=== PATIENT | female | born 1955 | race Caucasian/White ===

== ENCOUNTER 2017-10-19 12:24 | Inpatient (IN) | payer OTHER ==
[~2017-10-19] VITALS: Ht 160 cm; Wt 65.3 kg
[2017-10-19 12:45] VITALS: BP 206/111
--- NOTE | 2017-10-19 12:54 | NUR ---
URINE CUP PROVIDED TO PT FOR URINE SAMPLE; PT AA&OX4 WITH EVEN AND STEADY GAIT; PT TO LOBBY AWAITING OPEN BED; ER MD MADE AWARE OF PT'S BP.
--- NOTE | 2017-10-19 13:08 | NUR ---
61F BIB FAMILY C/O INTERMITTENT RT SIDED, MID-ABDOMINAL PAIN X 2 MONTHS, WITH VOMITING X TODAY. HX: APPENDIX RUPTURED (10 YEARS AGO), DM, HTN, HYERTHYROIDISM DENIES DIARRHEA; SKIN IS PINK/WARM/DRY; AAOX4 WITH EVEN AND STEADY GAIT; LUNGS CLEAR BL; HR EVEN AND REGULAR; PT DENIES ANY FEVER, CP, SOB, OR COUGH AT THIS TIME; PATIENT STATES PAIN OF 4/10 AT THIS TIME; VSS; PATIENT POSITIONED FOR COMFORT; HOB ELEVATED; BEDRAILS UP X2; BED DOWN. ER MD MADE AWARE OF PT STATUS.
--- NOTE | 2017-10-19 13:09 | NUR ---
PT AMBULATED TO BED 10
[2017-10-19] MEDS ORDERED: hydrALAZINE 20 MG/ML VIAL IVP ONE (13:15)
[2017-10-19] MEDS ORDERED: ENALAPRILAT 2.5 MG/2 ML VIAL IVP ONE (13:15)
[2017-10-19 13:56] LABS: BASOPHILS # (AUTO) 0.8 K/uL (0.00-0.22); EOSINOPHILS # (AUTO) 0.1 K/uL (0-0.4); HEMATOCRIT 39.4 % (36-48); LYMPHOCYTES # (AUTO) 2.1 K/uL (2.5-16.5); MEAN CORPUSCULAR HEMOGLOBIN 29 pg (27-31); MEAN CORPUSCULAR HGB CONC 33 g/dL (33-37); MEAN CORPUSCULAR VOLUME 88 fL (80-94); MONOCYTES # (AUTO) 0.3 K/uL (0.8-1.0); NEUTROPHILS # (AUTO) 6.8 K/uL (1.8-7.7); PLATELET COUNT (AUTO) 255 K/uL (140-450); RED BLOOD CELL COUNT(AUTO) 4.49 MIL/uL (4.20-5.40); RED CELL DISTRIBUTION WIDTH 11.9 % (11.6-13.7); WHITE BLOOD COUNT (AUTO) 10.1 K/uL (4.8-10.8)
[2017-10-19 14:14] LABS: ANION GAP 15.7 (8-16); CARBON DIOXIDE 24.4 mmol/L (21-32); CREATININE 1.3 mg/dL (0.6-1.3); POTASSIUM 4.1 mmol/L (3.5-5.1)
[2017-10-19 14:20] LABS: ALBUMIN 3.1 g/dL (3.4-5.0); TOTAL BILIRUBIN 0.4 mg/dL (0.0-1.0)
[2017-10-19] MEDS ORDERED: INSULIN REGULAR, HUMAN 100 UNIT/ML VIAL IV ONE (14:25)
[2017-10-19 15:38] LABS: APPEARANCE,URINE HAZY (CLEAR); BILIRUBIN,URINE NEGATIVE (NEGATIVE); BLOOD, URINE 3+ (NEGATIVE); COLOR,URINE YELLOW (YELLOW); LEUKOCYTE ESTERASE ,URINE NEGATIVE (NEGATIVE); NITRITE, URINE NEGATIVE (NEGATIVE); PH,URINE 5.5 (5.0-9.0); UGLUCOSE TRACE (NEGATIVE)
[2017-10-19 16:04] LABS: RBC,URINE >100 /HPF (0-5)
[2017-10-19 16:05] LABS: WBC,URINE 16-25 (MOD) /HPF (0-5)
[2017-10-19] MEDS: ONDANSETRON 4 MG/2 ML VIAL IVP ONE ×2 (16:14→16:43)
[2017-10-19] MEDS ORDERED: cefTRIAXone 2,000 MG in DEXTROSE 5% 100 ML IV ONE (16:20)
[2017-10-19] MEDS ORDERED: cefTRIAXone 2,000 MG VIAL ONE (16:22)
[2017-10-19] MEDS: NACL 0.9% 1,000 ML IV SCH (16:28)
[2017-10-19] MEDS ORDERED: ACETAMINOPHEN 325 MG TAB PO PRN (16:30)
[2017-10-19] MEDS ORDERED: MORPHINE SULFATE 2 MG/ML SYR IVP PRN (16:30)
[2017-10-19] MEDS ORDERED: DOCUSATE SODIUM 100 MG GELCAP PO PRN (16:30)
--- NOTE | 2017-10-19 16:43 | NUR ---
SPOKE WITH [facility] REGARDING DR. CHAHAL DECISION TO ADMIT INPATIENT. SPOKE WITH [facility] REGARDING LEVEL OF CARE, [facility]ARD MADE AWARE OF NEED FOR INPATIENT STATUS, SPOKE WITH DR CHAHAL REGARDING LEVEL OF CARE OBSERVATION. PER DR. CHAHAL, PATIENT IS NOT OBSERVATION BUT INPATIENT. RAMONA MADE AWARE. NO NEW ORDERS.
[2017-10-19] MEDS ORDERED: DEXTROSE 50% 50 ML SYR IVP PRN (16:55)
[2017-10-19] MEDS ORDERED: GABAPENTIN 300 MG CAP PO ONE (17:00)
[2017-10-19] MEDS: LISINOPRIL 10 MG TAB PO SCH (17:10)
[2017-10-19 17:48] LABS: AMYLASE 42 U/L (25-115); CHOL/HDL RATIO 3.5 (1-4.5); FREE T4 (FREE THYROXINE) 1.07 ng/dL (0.76-1.46); HDL CHOLESTEROL 46 mg/dL (40-60); LACTATE DEHYDROGENASE 411 U/L (81-234); LDL (CALC) 66 mg/dL (60-100); LIPASE 143 U/L (73-393); MAGNESIUM 1.4 mg/dL (1.8-2.4); PHOSPHORUS 4.1 mg/dL (2.5-4.9); THYROID STIMULATING HORMONE 2.88 uIU/mL (0.34-3.74); TRIGLYCERIDES 238 mg/dL (30-150)
[2017-10-19] MEDS ORDERED: MIC5 PO (18:04)
[2017-10-19] MEDS ORDERED: METF500T PO (18:04)
[2017-10-19] MEDS ORDERED: SYN.075 PO (18:05)
[2017-10-19] MEDS ORDERED: LEVO0.0711 PO (18:11)
[2017-10-19] MEDS ORDERED: MESA0.37 PO (18:11)
[2017-10-19] MEDS ORDERED: ATOR10TA PO (18:11)
[2017-10-19] MEDS ORDERED: INSU100I7 SQ (18:11)
[2017-10-19] MEDS ORDERED: GABA300C PO (18:11)
[2017-10-19] MEDS ORDERED: GLYB1TAB13 PO (18:11)
--- NOTE | 2017-10-19 18:15 | NUR ---
RECEIVED PT ON UNIT VIA [employer]. PT IS AMBULATORY, AAOX4, IV IS ON THE LEFT AC, PATENT, INTACT, FLUSHING WELL, NO S/S OF RESPIRATORY DISTRESS OR DISCOMFORT NOTED, ORIENTED PT TO ROOM, DISCUSSED PLAN OF CARE WITH PT, PT VERBALIZED UNDERSTANDING, SAFETY/FALL PRECAUTIONS ARE IN PLACE, CALL LIGHT IS WITHIN REACH, WILL CONTINUE TO MONITOR.
--- NOTE | 2017-10-19 18:17 | NUR ---
Pt report given to RADHA JOHNSON. Transfer of care at this time. PATIENT TAKEN TO 106B. NO S/S OF ACUTE DISTRESS NOTED.
[2017-10-19 18:35] LABS: PROTHROMBIN TIME 11.7 secs (10.8-13.4)
[2017-10-19 18:41] LABS: BARBITURATE, URINE NEG. ng/ml (NEG <=200); BENZODIAZEPINE, URINE NEG. ng/mL (NEG <=200); CANNABINOID, URINE NEG. ng/mL (NEG <=50); COCAINE, URINE NEG. ng/mL (NEG <=300); OPIATE, URINE NEG. ng/mL (NEG <=2000); PHENCYCLIDINE SCREEN,URINE NEG. ng/mL (NEG <=25)
--- NOTE | 2017-10-19 19:20 | NUR ---
ENDORSED PT TO TECHNICAL TRAINER NURSE FOR CONTINUITY OF CARE. PT STABLE AT THIS TIME.
--- NOTE | 2017-10-19 19:22 | NUR ---
RECEIVED REPORT FROM NIGHT RN. PT RESTING IN BED. AAOX4. NO S/S OF ACUTE DISTRESS. PT DENIES PAIN. IV SITE PATENT AND INTACT. CALL LIGHT WITHIN REACH. SAFETY MEASURES ENSURED. WILL CONTINUE TO MONITOR.
[2017-10-19] MEDS: ATORVASTATIN 20 MG TAB PO SCH (20:21)
[2017-10-19] MEDS: BLOOD GLUCOSE MONITORING 1 DEV DEV FS SCH (20:57)
[2017-10-19] MEDS ORDERED: cefTRIAXone 1,000 MG in LIDOCAINE MPF 1% - **ER/OR** 2.1 ML IM SCH (21:00)
[2017-10-19] MEDS: INSULIN LISPRO SLIDING SCALE 100 UNITS/ML VIAL SUBQ PRN (21:12)
[2017-10-19 22:18] VITALS: BP 158/68
--- NOTE | 2017-10-19 23:38 | NUR ---
PT SLEEPING IN BED. NO S/S OF ACUTE DISTRESS. PT STATES SHE IS NAUSEOUS. WILL MEDICATE
[2017-10-19] MEDS: ONDANSETRON 4 MG/2 ML VIAL IM/IVP PRN (23:43)
[2017-10-20] VITALS (7 sets, daily range): BP systolic 158–195; BP diastolic 60–85
--- NOTE | 2017-10-20 04:34 | NUR ---
PT SLEEPING IN BED. NO S/S OF ACUTE DISTRESS. CALL LIGHT WITHIN REACH. SAFETY MEASURES ENSURED. WILL CONTINUE TO MONITOR.
[2017-10-20] MEDS: NACL 0.9% 1,000 ML IV SCH ×3 (05:40→15:28)
[2017-10-20] MEDS: ONDANSETRON 4 MG/2 ML VIAL IM/IVP PRN ×2 (05:57→18:23)
[2017-10-20] MEDS: BLOOD GLUCOSE MONITORING 1 DEV DEV FS SCH ×4 (05:57→20:11)
[2017-10-20] MEDS: LEVOTHYROXINE 0.075 MG TAB PO SCH (05:57)
[2017-10-20 06:16] LABS: T4 (THYROXINE) 8.7 ug/dL (4.5-12.0)
[2017-10-20] MEDS ORDERED: MAG SULF 2000 MG/WATER PREMIX 50 ML IV SCH (07:00)
--- NOTE | 2017-10-20 07:27 | NUR ---
ENDORSED PLAN OF CARE TO DAY RN. PT REMAINS STABLE.
--- NOTE | 2017-10-20 07:30 | NUR ---
ENDORSEMENT RECEIVED FROM [employer] INVESTIGATOR NURSE. PATIENT IS AWAKE, ALERT. RESPIRATION EVEN, UNLABOR ON ROOM AIR. SKIN DRY AND WARM. IV PATENT AND INTACT. DENIED PAIN AT THIS TIME. COMPLAINED NAUSEA, BUT TOLERABLE WITHOUT MED. PLAN OF CARE WAS DISCUSSED WITH PATIENT. BED AT LOW POSITION, SIDE RAILS UP. CALL LIGHT WITHIN REACH
[2017-10-20 07:39] LABS: BASOPHILS # (AUTO) 0.2 K/uL (0.00-0.22); BASOPHILS % (AUTO) 1.9 % (0.0-2.0); EOSINOPHILS % (AUTO) 0.4 % (0.0-4.0); HEMOGLOBIN 12.6 g/dL (12.0-16.0); LYMPHOCYTES # (AUTO) 1.1 K/uL (2.5-16.5); LYMPHOCYTES % (AUTO) 9.3 % (20.5-51.1); MEAN CORPUSCULAR HEMOGLOBIN 30 pg (27-31); MEAN CORPUSCULAR HGB CONC 34 g/dL (33-37); MEAN CORPUSCULAR VOLUME 88 fL (80-94); MONOCYTES # (AUTO) 0.7 K/uL (0.8-1.0); MONOCYTES % (AUTO) 5.6 % (1.7-9.3); NEUTROPHILS # (AUTO) 10.2 K/uL (1.8-7.7); NEUTROPHILS % (AUTO) 82.8 % (42.2-75.2); PLATELET COUNT (AUTO) 279 K/uL (140-450); RED BLOOD CELL COUNT(AUTO) 4.21 MIL/uL (4.20-5.40); RED CELL DISTRIBUTION WIDTH 11.8 % (11.6-13.7); WHITE BLOOD COUNT (AUTO) 12.2 K/uL (4.8-10.8)
[2017-10-20 08:09] LABS: ANION GAP 15.4 (8-16); CARBON DIOXIDE 25.2 mmol/L (21-32); CREATININE 1.6 mg/dL (0.6-1.3); POTASSIUM 3.6 mmol/L (3.5-5.1)
[2017-10-20] MEDS: TAMSULOSIN 0.4 MG CAP PO SCH (08:27)
[2017-10-20] MEDS: glyBURIDE 5 MG TAB PO SCH (08:27)
[2017-10-20] MEDS: LISINOPRIL 10 MG TAB PO SCH (08:28)
[2017-10-20] MEDS: LACTOBACILLUS RHAMNOSUS GG 1 EACH CAP PO SCH (08:28)
[2017-10-20 08:48] LABS: PHOSPHORUS 4.5 mg/dL (2.5-4.9)
[2017-10-20 09:07] LABS: MAGNESIUM 1.5 mg/dL (1.8-2.4)
--- NOTE | 2017-10-20 10:33 | NUR ---
PATIENT HAS BEEN SCREENED AND CATEGORIZED MODERATE NUTRITION RISK. PATIENT WILL BE SEEN WITHIN 3-5 DAYS OF ADMISSION. 10/22/17 - 10/24/[address]
[2017-10-20] MEDS: hydrALAZINE 20 MG/ML VIAL IVP PRN ×2 (12:35→20:12)
[2017-10-20] MEDS: INSULIN LISPRO SLIDING SCALE 100 UNITS/ML VIAL SUBQ PRN ×2 (12:43→20:20)
--- NOTE | 2017-10-20 13:27 | NUR ---
URINE WAS STRAINED, MULTIPLE SMALL STONES WERE SEEN. DR. SEPULVEDA WAS MADE AWARE
--- NOTE | 2017-10-20 15:04 | NUR ---
PATIENT AWAKE, ALERT. RESPIRATION EVEN, UNLABOR ON ROOM AIR. NO DISTRESS NOTED. COMPLAINED HEADACHE AND REQUESTED MOTRIN. DR. WYLIE WAS MADE AWARE
--- NOTE | 2017-10-20 15:32 | NUR ---
CM NOTE INITIAL REVIEW FAXED TO [facility] (FAX# [phone], ATTN: BEATA #[phone] [id number]) & [facility] (FAX# [phone])
--- NOTE | 2017-10-20 17:04 | NUR ---
PATIENT IS SLEEPING COMFORTABLY. RESPIRATION EVEN, UNLABOR ON ROOM AIR. IV PATENT AND INTACT. NO DISTRESS NOTED AT THIS TIME. CALL LIGHT WITHIN REACH
--- NOTE | 2017-10-20 18:39 | NUR ---
PATIENT AWAKE, ALERT. RESPIRATION EVEN, UNLABOR ON ROOM AIR. COMPLAINED OF FLANK PAIN 8/10 THAT RADIATES TO THE BACK, AND EMESIS X 1. MEDS WERE GIVEN PER ORDER. CALL LIGHT WITHIN REACH
--- NOTE | 2017-10-20 19:16 | NUR ---
ENDORSEMENT GIVEN TO [employer] PROFESSIONAL NURSE. PATIENT IS STABLE AT THIS TIME
--- NOTE | 2017-10-20 19:17 | NUR ---
RECEIVED REPORT FROM NIGHT RN. PT RESTING IN BED. AOX4. NO S/S OF ACUTE DISTRESS. PT DENIES PAIN AT THIS TIME. IV SITE PATENT AND INTACT. PLAN OF CARE DISCUSSED. PT VERBALIZED UNDERSTANDING. CALL LIGHT WITHIN REACH. SAFETY MEASURES ENSURED. WILL CONTINUE TO MONITOR.
[2017-10-20] MEDS: ATORVASTATIN 20 MG TAB PO SCH (20:10)
--- NOTE | 2017-10-20 20:21 | NUR ---
PT'S O2 AT 89 PLACED ON O2 2 L NC. PT GIVEN HYDRALAZINE FOR HIGH BP. PT'S INSULIN HELD DUE TO PT BEING NAUSEOUS AND NOT WANTING TO EAT ANYTHING.
[2017-10-21] VITALS: BP 173/74
[2017-10-21 04:00] VITALS: BP 145/68
[2017-10-21] MEDS: NACL 0.9% 1,000 ML IV SCH (05:47)
[2017-10-21] MEDS: LEVOTHYROXINE 0.075 MG TAB PO SCH (05:47)
[2017-10-21] MEDS: BLOOD GLUCOSE MONITORING 1 DEV DEV FS SCH (05:48)
[2017-10-21] MEDS: INSULIN LISPRO SLIDING SCALE 100 UNITS/ML VIAL SUBQ PRN ×2 (05:54→12:41)
[2017-10-21 06:51] LABS: BASOPHILS # (AUTO) 0.1 K/uL (0.00-0.22); EOSINOPHILS % (AUTO) 0.2 % (0.0-4.0); HEMOGLOBIN 11.9 g/dL (12.0-16.0); MONOCYTES # (AUTO) 1.1 K/uL (0.8-1.0); PLATELET COUNT (AUTO) 260 K/uL (140-450); RED CELL DISTRIBUTION WIDTH 11.9 % (11.6-13.7); WHITE BLOOD COUNT (AUTO) 12.8 K/uL (4.8-10.8)
[2017-10-21 07:10] LABS: BASOPHILS % (AUTO) 1.1 % (0.0-2.0); HEMATOCRIT 34.8 % (36-48); LYMPHOCYTES # (AUTO) 1.2 K/uL (2.5-16.5); LYMPHOCYTES % (AUTO) 9.2 % (20.5-51.1); MEAN CORPUSCULAR HEMOGLOBIN 30 pg (27-31); MEAN CORPUSCULAR HGB CONC 34 g/dL (33-37); MEAN CORPUSCULAR VOLUME 88.7 fL (80-94); MONOCYTES % (AUTO) 8.7 % (1.7-9.3); NEUTROPHILS # (AUTO) 10.4 K/uL (1.8-7.7); NEUTROPHILS % (AUTO) 80.8 % (42.2-75.2); RED BLOOD CELL COUNT(AUTO) 3.92 MIL/uL (4.20-5.40)
--- NOTE | 2017-10-21 07:18 | NUR ---
ENDORSED PLAN OF CARE TO DAY RN. PT REMAINS STABLE
--- NOTE | 2017-10-21 07:20 | NUR ---
RECEIVED PATIENT REPORT AT BEDSIDE. PT RESTING IN BED. AOX4. NO S/S OF ACUTE DISTRESS. PT DENIES PAIN AT THIS TIME. IV SITE PATENT AND INTACT. PLAN OF CARE DISCUSSED. PT VERBALIZED UNDERSTANDING. CALL LIGHT WITHIN REACH. SAFETY MEASURES ENSURED. WILL CONTINUE TO MONITOR.
[2017-10-21 07:23] LABS: ANION GAP 16.2 (8-16); CARBON DIOXIDE 23.7 mmol/L (21-32); CREATININE 2.2 mg/dL (0.6-1.3); POTASSIUM 3.9 mmol/L (3.5-5.1)
[2017-10-21 07:25] LABS: MAGNESIUM 1.9 mg/dL (1.8-2.4); PHOSPHORUS 5.3 mg/dL (2.5-4.9)
[2017-10-21 08:00] VITALS: BP 136/53
[2017-10-21] MEDS: glyBURIDE 5 MG TAB PO SCH (08:00)
--- NOTE | 2017-10-21 08:32 | NUR ---
PATIENT LEFT THE UNIT FOR CYSTOSCOPY WITH JJ STENT PLACEMENT
[2017-10-21] MEDS ORDERED: LISINOPRIL 20 MG TAB PO SCH (09:00)
[2017-10-21] MEDS ORDERED: LISINOPRIL 10 MG TAB PO SCH (09:00)
[2017-10-21] MEDS ORDERED: fentaNYL 0.05 MG/ML VIAL ONE (09:02)
[2017-10-21] MEDS ORDERED: ceFAZolin 1,000 MG VIAL ONE (09:04)
[2017-10-21] MEDS ORDERED: SEVOFLURANE 250 ML BTL INH ONE (09:11)
[2017-10-21] MEDS ORDERED: PROPOFOL 200 MG/20 ML VIAL IV ONE ×2 (09:11→15:18)
[2017-10-21] MEDS ORDERED: ONDANSETRON 4 MG/2 ML VIAL ONE ×2 (09:11→15:18)
[2017-10-21] MEDS ORDERED: BLOOD GLUCOSE MONITORING 1 DEV DEV FS ONE (09:25)
[2017-10-21] MEDS ORDERED: ONDANSETRON 4 MG/2 ML VIAL IVP PRN (09:25)
[2017-10-21] MEDS ORDERED: HYDROmorphone 1 MG/ML AMP IVP PRN (09:25)
--- NOTE | 2017-10-21 11:25 | NUR ---
FAXED CONCURRENT REVIEW TO [facility] [phone] PHONE [phone] BEATA Pandey [id number] FAXED CONCURRENT REVIEW TO [facility] [phone] PHONE [phone] X*MEREDITH Myles
[2017-10-21 12:00] VITALS: BP 148/72
[2017-10-21] MEDS: TAMSULOSIN 0.4 MG CAP PO SCH (12:30)
[2017-10-21] MEDS: LACTOBACILLUS RHAMNOSUS GG 1 EACH CAP PO SCH (12:31)
[2017-10-21] MEDS: HYDROcodone/APAP 7.5/325 MG 1 TAB PO PRN ×2 (14:53→21:29)
--- NOTE | 2017-10-21 14:55 | NUR ---
PATIENT AMBULATED TO BATHROOM AND BACK TO BED WITH STEADY GAIT. REPORTS HAVING A BOWEL MOVEMENT. COMPLAINTS OF LEFT FLANK PAIN, NORCO GIVEN PER ORDERS. ALSO COMPLAINTS OF NAUSEA WITHOUT VOMITING, ZOFRAN GIVEN PER ORDERS. SAFETY MEASURES IN PLACE, CALL LIGHT WITHIN REACH. WILL CONTINUE TO MONITOR.
[2017-10-21] MEDS: ONDANSETRON 4 MG/2 ML VIAL IM/IVP PRN (15:01)
[2017-10-21 16:00] VITALS: BP 136/85
[2017-10-21] MEDS: CALCIUM ACETATE 667 MG TAB PO SCH (16:56)
--- NOTE | 2017-10-21 16:56 | NUR ---
PATIENT AMBULATED TO BATHROOM AND BACK TO BED. REPORTS HAVING HEMATURIA. SCHEDULED MEDICATIONS DUE GIVEN. V/S TAKEN. PAIN WITHIN TOLERABLE AT THIS TIME. SAFETY MEASURES IN PLACE, CALL LIGHT WITHIN REACH. WILL CONTINUE TO MONITOR.
--- NOTE | 2017-10-21 18:00 | NUR ---
PATIENT SITTING AT BEDSIDE TALKING WITH FAMILY MEMBER AT BEDSIDE. NO DISTRESS NOTED. PAIN WITHIN TOLERABLE AT THIS TIME. DENIES ANY NAUSEA/VOMITING AT THIS TIME. SAFETY MEASURES IN PLACE, CALL LIGHT WITHIN REACH. WILL CONTINUE TO MONITOR.
--- NOTE | 2017-10-21 19:20 | NUR ---
GAVE REPORT TO FREIGHT CAR INSPECTOR NURSE FOR CONTINUITY OF CARE. PATIENT IN STABLE CONDITION.
--- NOTE | 2017-10-21 19:25 | NUR ---
RECEIVED FROM AM RN IN BED AWAKE AND ALERT. VISITOR IN. TALKING WELL. NO SOB. DENIES ANY PAIN AT THIS TIME. CARE PLANS FOR THE NIGHT DISCUSSED WITH HER AND RE-ORIENTED TO USE OF CALL LIGHT FOR ANY HELP SHE MAY NEED OR IF IN PAIN. TELEMETRY MONITORING. DX. OF UNCONTROLLED HTN, DM AND UTI. NO NOTED HYPO/HYPERGLYCEMIA S/S AT THIS TIME.
[2017-10-21] MEDS: ATORVASTATIN 20 MG TAB PO SCH (21:13)
[2017-10-21 21:24] VITALS: BP 118/92
--- NOTE | 2017-10-21 23:12 | NUR ---
SLEEPING AT THIS TIME. TELEMETRY MONITORING.
[2017-10-22] VITALS: BP 169/77
--- NOTE | 2017-10-22 03:42 | NUR ---
SLEEPING AT THIS TIME. NO COMPLAINTS DONE. IVF FLUID DISCONTINUED BY RESIDENT MD EARLIER. HEPLOCKED.
[2017-10-22] MEDS: LEVOTHYROXINE 0.075 MG TAB PO SCH (05:44)
[2017-10-22 06:05] VITALS: BP 138/63
--- NOTE | 2017-10-22 06:56 | NUR ---
NO COMPLAINTS DONE THIS SHIFT. AWAKE AND ALERT. WATCHING TV. ABLE TO VERBALIZE NEEDS WELL. PT. INDEPENDENT IN GOING TO RESTROOM LOCATED INSIDE ROOM.
--- NOTE | 2017-10-22 07:30 | NUR ---
RECEIVED REPORT FROM LUIS RN AT BEDSIDE, PT IS AAOX4, ABLE TO FOLLOW COMMANDS AND MAKE NEEDS KNOWN, VSS, DENIES PAIN, NO S/S OF DISTRESS, CLEAR LUNG SOUNDS, ON RA, DENIES CHEST PAIN,SR ON TELE MONITOR, SOFT ABDOMEN WITH ACTIVE BOWEL SOUNDS, CONTINENT WITH B&B'S, ABLE TO MOVE ALL EXTREMITIES, SKIN IS WARM AND DRY TO TOUCH, IV SITE TO RIGHT AC, 22GA, PATENT, SL. HOB ELEVATED 30 DEGREES, SAFETY MEASURE IN PLACE, CALL LIGHT WITHIN REACH, WILL CONTINUE TO MONITOR.
[2017-10-22 08:00] VITALS: BP 159/68
[2017-10-22] MEDS: CALCIUM ACETATE 667 MG TAB PO SCH (08:16)
[2017-10-22] MEDS: TAMSULOSIN 0.4 MG CAP PO SCH (08:17)
[2017-10-22] MEDS: LACTOBACILLUS RHAMNOSUS GG 1 EACH CAP PO SCH (08:18)
[2017-10-22] MEDS: glyBURIDE 5 MG TAB PO SCH (08:18)
[2017-10-22] MEDS ORDERED: LISINOPRIL 20 MG TAB PO SCH (09:00)
--- NOTE | 2017-10-22 09:00 | NUR ---
SCHEDULED MEDICATION GIVEN, PT TOLERATED WELL.
[2017-10-22 09:51] LABS: ALBUMIN 2.6 g/dL (3.4-5.0); ANION GAP 13.5 (8-16); CARBON DIOXIDE 25.2 mmol/L (21-32); CREATININE 1.6 mg/dL (0.6-1.3); MAGNESIUM 1.6 mg/dL (1.8-2.4); PHOSPHORUS 2.8 mg/dL (2.5-4.9); POTASSIUM 3.7 mmol/L (3.5-5.1); TOTAL BILIRUBIN 0.3 mg/dL (0.0-1.0)
[2017-10-22 12:00] VITALS: BP 156/83
--- NOTE | 2017-10-22 12:00 | NUR ---
PT STATED HER URINE IS RED COLORED, EXPLAINED TO PT THAT IS NORMAL AFTER HER PROCEDURE, PT VERBALIZED UNDERSTANDING IT.
[2017-10-22] MEDS ORDERED: LISI40TA4 PO (12:04)
[2017-10-22] MEDS ORDERED: AMLO5TAB4 PO (12:04)
[2017-10-22] MEDS ORDERED: TAMS0.4C96 PO (12:04)
[2017-10-22] MEDS ORDERED: MAGNESIUM OXIDE 400 MG TAB PO SCH (12:15)
[2017-10-22] MEDS ORDERED: amLODIPine 5 MG TAB PO SCH (12:30)
[2017-10-22 13:00] VITALS: BP 156/83
[2017-10-22] MEDS ORDERED: ASPI81CT89 PO (13:11)
--- NOTE | 2017-10-22 14:00 | NUR ---
PT DISCHARGED TO HOME ORDERED, PT IS ABLE TO AMBULATE WITHOUT ASSIST, VSS. EXPLAINED THE DISCHARGE INSTRUCTION TO PT, PT VERBALIZED UNDERSTANDING, AND SIGNED ALL THE DISCHARGE PAPERS. REFUSED PNA VACCINE AT THIS TIME, ALL BELONGS GOES WITH PT.
[2017-10-23] MEDS ORDERED: amLODIPine 5 MG TAB PO SCH (09:00)
== END 2017-10-22 14:00 | disposition home or self-care (01) | DRG 465 ==
LOC: MED 12:24 → MTU 16:31
PROVIDERS: ADMIT Student in an Organized Health Care Education/Training Program; ATTEND Student in an Organized Health Care Education/Training Program
PROC: BT141ZZ Fluoroscopy of Kidneys, Ureters and Bladder using Low Osmolar Contrast (ICD-10-PCS; 2017-10-21)
PROC: 0T788DZ Dilation of Bilateral Ureters with Intraluminal Device, Via Natural or Artificial Opening Endoscopic (ICD-10-PCS; principal; 2017-10-21 08:45)
DX: N13.2 Hydronephrosis with renal and ureteral calculous obstruction (principal); N17.0 Acute kidney failure with tubular necrosis; I67.4 Hypertensive encephalopathy; E44.0 Moderate protein-calorie malnutrition; D68.59 Other primary thrombophilia; I42.9 Cardiomyopathy, unspecified; E11.22 Type 2 diabetes mellitus with diabetic chronic kidney disease; E11.42 Type 2 diabetes mellitus with diabetic polyneuropathy; I34.0 Nonrheumatic mitral (valve) insufficiency; I07.1 Rheumatic tricuspid insufficiency; I12.9 Hypertensive chronic kidney disease with stage 1 through stage 4 chronic kidney disease, or unspecified chronic kidney disease; N18.9 Chronic kidney disease, unspecified; E11.65 Type 2 diabetes mellitus with hyperglycemia; E83.42 Hypomagnesemia; D64.9 Anemia, unspecified; E78.5 Hyperlipidemia, unspecified; E11.51 Type 2 diabetes mellitus with diabetic peripheral angiopathy without gangrene; I70.209 Unspecified atherosclerosis of native arteries of extremities, unspecified extremity; E03.9 Hypothyroidism, unspecified; E66.9 Obesity, unspecified; N39.0 Urinary tract infection, site not specified; R31.9 Hematuria, unspecified; K76.0 Fatty (change of) liver, not elsewhere classified; R74.0 Nonspecific elevation of levels of transaminase and lactic acid dehydrogenase [LDH]; F17.200 Nicotine dependence, unspecified, uncomplicated; Z90.49 Acquired absence of other specified parts of digestive tract; Z98.891 History of uterine scar from previous surgery; Z68.25 Body mass index [BMI] 25.0-25.9, adult; G31.9 Degenerative disease of nervous system, unspecified
CPT/HCPCS: 36415; 70450; 71045; 72050; 76700; 76770; 77003; 80048; 80053; 80305; 81001; 82140; 82150; 82550; 82553; 82948; 83036; 83605; 83615; 83690; 83735; 83880; 84100; 84436; 84439; 84443; 84479; 84484; 85025; 85610; 85730; 87081; 87086; 93005; 93925; 93970; 96365; 96375; 99285; C1758; C1769; C2617; G0482; J0360; J0690; J0696; J1815; J2270; J2405; J2704; J3010; J3475; J3490; J7030; Q0092

== ENCOUNTER 2018-02-15 11:08 | Emergency (ER) | payer OTHER ==
[~2018-02-15] VITALS: Ht 162.6 cm; Wt 90.7 kg
[~2018-02-15 11:08] MED LIST: AMLO5TAB4 PO; ASPI81CT89 PO; ATOR10TA PO; GABA300C PO; INSU100I7 SQ; LEVO0.0711 PO; LISI40TA4 PO; MESA0.37 PO; TAMS0.4C96 PO
[2018-02-15 11:13] VITALS: BP 127/74
[2018-02-15] MEDS ORDERED: NACL 0.9% 1,000 ML IV ONE ×2 (11:35→13:05)
[2018-02-15 11:49] LABS: BASOPHILS % (AUTO) 0.8 % (0.0-2.0); EOSINOPHILS # (AUTO) 0.5 K/uL (0-0.4); EOSINOPHILS % (AUTO) 7.5 % (0.0-4.0); HEMATOCRIT 35.8 % (36-48); HEMOGLOBIN 12.1 g/dL (12.0-16.0); LYMPHOCYTES # (AUTO) 1.8 K/uL (2.5-16.5); LYMPHOCYTES % (AUTO) 27.4 % (20.5-51.1); MEAN CORPUSCULAR HEMOGLOBIN 30 pg (27-31); MEAN CORPUSCULAR HGB CONC 34 g/dL (33-37); MEAN CORPUSCULAR VOLUME 88.4 fL (80-94); MONOCYTES # (AUTO) 0.7 K/uL (0.8-1.0); MONOCYTES % (AUTO) 11.4 % (1.7-9.3); NEUTROPHILS # (AUTO) 3.4 K/uL (1.8-7.7); NEUTROPHILS % (AUTO) 52.9 % (42.2-75.2); PLATELET COUNT (AUTO) 271 K/uL (140-450); RED BLOOD CELL COUNT(AUTO) 4.05 MIL/uL (4.20-5.40); WHITE BLOOD COUNT (AUTO) 6.5 K/uL (4.8-10.8)
[2018-02-15 12:48] LABS: SALICYLATE 5.5 mg/dL (2.8-20.0)
[2018-02-15 12:49] LABS: ACETAMINOPHEN < 0.5 ug/ml (10-30)
[2018-02-15 12:51] LABS: PROTHROMBIN TIME 10.3 secs (10.8-13.4)
[2018-02-15 12:52] LABS: ALBUMIN 3.4 g/dL (3.4-5.0); ANION GAP 16.4 (8-16); CARBON DIOXIDE 20.1 mmol/L (21-32); POTASSIUM 4.5 mmol/L (3.5-5.1); TOTAL BILIRUBIN 0.2 mg/dL (0.0-1.0)
[2018-02-15 12:53] LABS: BARBITURATE, URINE NEG. ng/ml (NEG <=200); BENZODIAZEPINE, URINE NEG. ng/mL (NEG <=200); CANNABINOID, URINE NEG. ng/mL (NEG <=50); COCAINE, URINE NEG. ng/mL (NEG <=300); OPIATE, URINE NEG. ng/mL (NEG <=2000); PHENCYCLIDINE SCREEN,URINE NEG. ng/mL (NEG <=25)
[2018-02-15 16:03] VITALS: BP 133/78
== END 2018-02-15 16:03 | disposition home or self-care (01) ==
LOC: MED 11:08
DX: N28.9 Disorder of kidney and ureter, unspecified (principal); R53.1 Weakness; E11.9 Type 2 diabetes mellitus without complications; I10 Essential (primary) hypertension; R94.31 Abnormal electrocardiogram [ECG] [EKG]; E07.9 Disorder of thyroid, unspecified; Z79.82 Long term (current) use of aspirin; Z79.899 Other long term (current) drug therapy; Z79.4 Long term (current) use of insulin
CPT/HCPCS: 36415; 80053; 80305; 85025; 85610; 85730; 93005; 99285; G0480; G0482

== ENCOUNTER 2020-01-09 06:29 | Day surgery (SDC) | payer OTHER, SELFPAY ==
[~2020-01-09 06:29] MED LIST changes: -AMLO5TAB4 PO; +AMLO5TAB6 PO; +ASPI-1822 PO; -ASPI81CT89 PO
[2020-01-09] MEDS ORDERED: fentaNYL 0.05 MG/ML VIAL ONE ×2 (07:35→07:37)
[2020-01-09] MEDS ORDERED: MIDAZOLAM 2 MG/2 ML VIAL ONE ×2 (07:35→07:36)
[2020-01-09] MEDS ORDERED: LIDOCAINE 2% 100 MG/5 ML UJET TP ONE (07:36)
[2020-01-09] MEDS ORDERED: MIDAZOLAM 2 MG/2 ML VIAL IV ONE (08:15)
[2020-01-09] MEDS ORDERED: fentaNYL 0.05 MG/ML VIAL IVP ONE (08:50)
== END 2020-01-09 09:05 | disposition home or self-care (01) ==
LOC: MDS 06:29 → MMU 06:30 → MDS 09:05
PROVIDERS: ATTEND Internal Medicine Gastroenterology
DX: R19.7 Diarrhea, unspecified (principal); K63.5 Polyp of colon; K64.8 Other hemorrhoids; Z87.891 Personal history of nicotine dependence; E78.00 Pure hypercholesterolemia, unspecified; E03.9 Hypothyroidism, unspecified; Z86.73 Personal history of transient ischemic attack (TIA), and cerebral infarction without residual deficits; E11.9 Type 2 diabetes mellitus without complications; J44.9 Chronic obstructive pulmonary disease, unspecified; Z90.49 Acquired absence of other specified parts of digestive tract
CPT/HCPCS: 36415; 45380; 45385; 81025; 82948; J2250; J3010; 88305; U0003-CS